=== PATIENT | female | born 1970 | race Caucasian/White ===

== ENCOUNTER → 2019-02-14 08:15 | Outpatient (CLI) | payer OTHER, SELFPAY ==
--- NOTE | 2019-02-14 08:19 | MM_ITS ---
PROCEDURE: MM DIG SCREENING MAMM BI W/CAD CLINICAL INDICATION: SCREENING There is no personal or family history of breast cancer COMPARISON: DIGMAMMS MAMMOGRAM SCREEN-SPORTS [employer] N/C from 01/25/2006 DIGMAMMS MAMMOGRAM SCREEN-SPORTS [employer] N/C from 09/19/2006 [facility] DIG MAMM-SCREEN KWADWO from 12/21/2015 TECHNIQUE: Standard CC and MLO images were obtained. R2 CAD reviewed. FINDINGS: There is a diffusely dense and heterogenic parenchymal pattern lessening the sensitivity of mammography. There is stable slightly asymmetrically increased fibroglandular elements in the central portion left breast. There is a possible developing asymmetric density upper outer quadrant left breast versus summation shadow. Recommend the patient return for spot compression views and ultrasound may be necessary as well. There are no suspicious microcalcifications. IMPRESSION: Diffusely dense parenchymal pattern with possible asymmetric lesion left breast BI-RAD Category: 0 Need Additional Imaging Evaluation FOLLOW-UP: IMM Immediate Follow-up Recommended (A letter has been sent to the patient regarding results of the study.) Dictated by: Dr. Vaibhav Abernathy MD 02/19/2019 10:[address] Vaibhav Abernathy MD in [place] 02/19/2019 10:23
== END ==
PROVIDERS: PCP Family Medicine; Visit Provider Family Medicine
DX: Z12.31 Encounter for screening mammogram for malignant neoplasm of breast (principal)
CPT/HCPCS: 77067

== ENCOUNTER → 2019-03-07 14:13 | Outpatient (CLI) | payer OTHER, SELFPAY ==
--- NOTE | 2019-03-07 14:18 | MM_ITS ---
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 FINDINGS: There is dense fibroglandular tissue which decreases sensitivity of mammography. Multiple benign-appearing nodular opacities are present. There is some minimal parenchymal opacity noted in the area of concern possibly related overlapping fibroglandular tissue. Would suggest correlation with ultrasound for confirmation in this patient with dense breast tissue. Scattered benign-appearing calcifications and scattered benign-appearing nodules are noted. IMPRESSION: Since there is some persistent parenchymal opacity in the upper outer left breast in the area of concern on the screening exam possibly related to overlapping tissue. Recommend ultrasound for further evaluation BI-RAD Category: 0 Need Additional Imaging Evaluation FOLLOW-UP: IMM Immediate Follow-up Recommended (A letter has been sent to the patient regarding results of the study.) Dictated by: Justus Rosenthal MD 03/11/2019 13:05 Electronically signed by Justus Rosenthal MD in [place] 03/11/2019 13:05
== END ==
PROVIDERS: PCP Family Medicine; Visit Provider Family Medicine
DX: R92.8 Other abnormal and inconclusive findings on diagnostic imaging of breast (principal)
CPT/HCPCS: 77065

== ENCOUNTER → 2019-03-28 13:03 | Outpatient (CLI) | payer OTHER, SELFPAY ==
--- NOTE | 2019-03-28 13:12 | US_ITS ---
PROCEDURE: US BREAST LT COMPLETE CLINICAL INDICATION: ABN MAMM Or follow-up abnormal mammogram COMPARISON: MM DIG SCREENING MAMM BI W/CAD from 02/14/2019 MM DIG MAMM DX UNILAT LT CAD from 03/07/2019 FINDINGS: At 3 o'clock there is a 5 x 3 mm cyst. At 5 o'clock there is a 10 x 5 mm cyst. There is ductal dilatation in the retro areolar region with heterogeneous echogenic fibroglandular tissue. At 10 o'clock near the nipple there is a 8 mm hypoechoic nodule. This has some low level echoes but could be related to artifact. At 3 o'clock there is a 15 mm cyst. Small nodes are present in the axilla. IMPRESSION: There are multiple left breast cysts as well as ductal ectasia in the retroareolar region. There is a hypoechoic nodule at the 10 o'clock region deep in the breast along the chest wall which is 10 x 8 mm. This could represent a cyst as well however there are some low level echoes which could be related to the technique with reverberation. This nodules fairly well-circumscribed probably benign. Suggest 6 month sonographic follow-up to confirm stability. BI-RADS category 3 probably benign Recommend six-month mammographic and sonographic follow-up of the left breast. Dictated by: Justus Rosenthal MD 04/09/2019 07:59 Electronically signed by Justus Rosenthal MD in [place] 04/09/2019 07:59
== END ==
PROVIDERS: PCP Family Medicine; Visit Provider Family Medicine
DX: R92.8 Other abnormal and inconclusive findings on diagnostic imaging of breast (principal)
CPT/HCPCS: 76641

== ENCOUNTER → 2019-09-11 14:22 | Outpatient (CLI) | payer OTHER, SELFPAY ==
--- NOTE | 2019-09-11 14:27 | US_ITS ---
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 R2 CAD reviewed. Left breast ultrasound the FINDINGS: There is dense fibroglandular tissue. There are multiple benign-appearing nodules of the left breast as well as scattered benign-appearing calcifications. No malignant appearing mass or malignant-appearing microcalcification is evident. Left breast ultrasound: Multiple cysts are present as before including a 7 mm cyst at 3 o'clock, a 16 mm cyst 3 o'clock, and 11 mm cyst 4 o'clock and a 10 mm cyst 10 o'clock. There is ductal ectasia noted. In the retroareolar region there is a well-circumscribed isoechoic to slightly hypoechoic nodule at 10 mm not readily apparent on the previous ultrasound and may represent a debris-filled cyst. Three month sonographic follow-up is suggested to confirm stability or resolution. IMPRESSION: Probably benign findings. Multiple left breast cysts. Possible complicated cyst in the retroareolar region not readily apparent previously. Recommend 3 month sonographic follow-up BI-RAD Category: 3 Probably Benign Finding Short Term Follow-up FOLLOW-UP: 3M 3 Month Follow-up (A letter has been sent to the patient regarding results of the study.) The Dictated by: Justus Rosenthal MD 09/16/2019 11:11 Electronically signed by Justus Rosenthal MD in [place] 09/16/2019 11:11
== END ==
PROVIDERS: PCP Family Medicine; Visit Provider Family Medicine
DX: R92.8 Other abnormal and inconclusive findings on diagnostic imaging of breast (principal)
CPT/HCPCS: 76641; 77061; 77065; G0279

== ENCOUNTER → 2020-04-02 13:57 | Outpatient (CLI) | payer OTHER, SELFPAY ==
--- NOTE | 2020-04-02 14:08 | MM_ITS ---
PROCEDURE: MM DIG MAMM BI DX W/CAD Digital Breast Tomosynthesis Included CLINICAL INDICATION: ABN MAMM There is no personal or family history of breast cancer. This is a six-month follow-up mammogram left breast screening mammogram right breast. COMPARISON: MG MM DIG SCREENING MAMM BI W/CAD from 02/14/2019 MG MM DIG MAMM DX UNILAT LT CAD from 03/07/2019 MG MM DIG MAMM DX UNILAT LT CAD from 09/11/2019 US US BREAST LT COMPLETE from 04/02/2020 TECHNIQUE: Standard CC and MLO images and 3D Tomosynthesis was obtained. R2 CAD reviewed. FINDINGS: Use heterogenic fibroglandular densities are seen throughout both breasts. There is a well-defined nodular density upper inner quadrant left breast the smooth borders. Ultrasound performed the same date showed a solid lesion with homogeneous internal echogenicity suggesting a fibroadenoma at this location compatible in size. There are additional benign-appearing cystic lesions seen in left breast on the ultrasound study. This for lesion is stable and unchanged in appearance from mammograms dating back to 02/14/2019. The other possible nodular lesion at outer quadrant left breast seen on mammogram of 02/14/2019 is not seen on the [place] images. This may have been a cyst which decompressed. There are few scattered microcalcifications in the subareolar regions of both breasts which appear to be typical of sclerosing adenosis. There appear to be some mildly prominent ducts in the subareolar regions of both breasts. There is no suspicious lesion and no suspicious microcalcifications. IMPRESSION: Dense and heterogenic parenchymal pattern with no suspicious lesions seen BI-RAD Category: 2 Benign Finding(s) FOLLOW-UP: 1YR 1 Year Follow-up (A letter has been sent to the patient regarding results of the study.) Dictated by: Dr. Vaibhav Abernathy MD 04/07/2020 09:03 Dr. Vaibhav Abernathy MD in [place] 04/07/2020 09:03
--- NOTE | 2020-04-02 14:09 | US_ITS ---
PROCEDURE: US BREAST LT COMPLETE CLINICAL INDICATION: ABN MAMM COMPARISON: US US BREAST LT COMPLETE from 09/11/2019 FINDINGS: There are dilated ducts in the subareolar region as noted previously. There is a benign-appearing cystic lesion 2 o'clock position near the nipple measuring 0.8 x 0.8 by 0.8 cm showing mild acoustic enhancement beneath. There are couple of smaller benign-appearing cystic lesions at the 3 and 5 o'clock outer breast. There is an oval hypoechoic solid lesion at the 11 o'clock position mid breast measuring 1.0 x 0.8 by 0.8 cm and this corresponds in size and location to the well-defined nodular density seen on mammogram and best seen on [place] images and this likely is a fibroadenoma. There are couple normal appearing nodes in the axilla. IMPRESSION: Findings of ductal hyperplasia as noted previously with several small benign-appearing cyst and what appears to be a small fibroadenoma which appears to correspond in size and location to the density on the mammogram and I believe no additional ultrasound follow-up is indicated is at this time. Dictated by: Dr. Vaibhav Abernathy MD 04/07/2020 09:08 Dr. Vaibhav Abernathy MD in [place] 04/07/2020 09:08
== END ==
PROVIDERS: PCP Family Medicine; Visit Provider Family Medicine
DX: R92.8 Other abnormal and inconclusive findings on diagnostic imaging of breast (principal)
CPT/HCPCS: 76641; 77062; 77066; G0279

== ENCOUNTER → 2020-07-29 10:06 | Outpatient (CLI) | payer BC, SELFPAY | PROVIDERS: PCP Family Medicine; Visit Provider Family Medicine | DX: G47.33 Obstructive sleep apnea (adult) (pediatric) (principal); R40.0 Somnolence; R51.9 Headache, unspecified; R06.83 Snoring | CPT/HCPCS: 95806 ==

== ENCOUNTER → 2021-04-15 07:57 | Outpatient (CLI) | payer BC, SELFPAY ==
--- NOTE | 2021-04-15 08:00 | MM_ITS ---
PROCEDURE INFORMATION: Exam: MG Bilateral Screening 3D Mammography Exam date and time: 04/15/2021 8:00 AM Age: 50 years old Clinical indication: Screening exam; No personal or family HX of malignancy TECHNIQUE: Imaging protocol: Bilateral screening tomosynthesis and 2D mammography including computer-aided detection (CAD) when performed. COMPARISON: 1. MG MM DIG MAMM BI DX W/CAD 04/02/2020 2:25 PM 2. MG MM DIG MAMM DX UNILAT LT CAD 09/11/2019 2:39 PM FINDINGS: MAMMOGRAPHY: Breast composition: The breast tissue is heterogeneously dense, which may obscure small masses. Mass: None. Architectural distortion: None. Calcifications: No suspicious calcifications. Asymmetric density: None. Skin thickening: None. Axillary adenopathy: None. IMPRESSION: No mammographic evidence of malignancy. Annual screening is recommended unless otherwise clinically indicated. ASSESSMENT: BI-RADS Category 1: Negative
== END ==
PROVIDERS: PCP Family Medicine; Visit Provider Family Medicine
DX: Z12.31 Encounter for screening mammogram for malignant neoplasm of breast (principal)
CPT/HCPCS: 77063; 77067

== ENCOUNTER → 2022-04-21 07:47 | Outpatient (CLI) | payer BC, SELFPAY ==
--- NOTE | 2022-04-21 07:52 | MM_ITS ---
PROCEDURE INFORMATION: Exam: MG Bilateral Screening 3D Mammography Exam date and time: 04/21/2022 7:56 AM Age: 51 years old Clinical indication: Screening examination TECHNIQUE: Imaging protocol: Bilateral Screening tomosynthesis and 2D mammography including computer-aided detection (CAD) when performed. COMPARISON: 1. MG MM DIG SCREENING MAMM BI W/CAD 04/15/2021 8:01 AM 2. MG MM DIG MAMM BI DX W/CAD 04/02/2020 2:25 PM FINDINGS: MAMMOGRAPHY: Breast composition: The breasts are heterogeneously dense, which may obscure small masses. Mass: None. Architectural distortion: None. Calcifications: No suspicious calcifications. Asymmetric density: None. Skin thickening: None. Axillary adenopathy: None. IMPRESSION: No mammographic evidence of malignancy. Annual screening is recommended unless otherwise clinically indicated. ASSESSMENT: BI-RADS Category 1: Negative
== END ==
PROVIDERS: PCP Nurse Practitioner Family; Visit Provider Nurse Practitioner Family
DX: Z12.31 Encounter for screening mammogram for malignant neoplasm of breast (principal)
CPT/HCPCS: 77063; 77067

== ENCOUNTER 2023-03-11 17:38 | Emergency (ER) | payer BC, SELFPAY ==
--- NOTE | 2023-03-11 17:48 | EXP.UTC ---
Discharge Plan Prescriptions Prescriptions: No Action eszopiclone [Lunesta] 3 MG Tablet 3 mg PO DAILY fexofenadine [Kavita Allergy] 60 MG Tablet 60 mg PO DAILY PRN (Reason: allergy) metoprolol succinate 50 MG Tab.Er.24h 50 mg PO DAILY Referrals Follow up/Referrals: Darryl Mac MD [Primary Care Provider] - See instructions Activity Restrictions/Add. Instructions Additional Instructions/Restrictions: EKG showed LBBB and epigastric pain did not resolve with GI cocktail - sent to ER Clinical Impressions Clinical Impression: Epigastric abdominal pain Discharge ED Provider: Jordan Carson [facility] [place] HPI General Stated complaint: heartburn Time Seen by Provider: 03/11/23 18:30 History of Present Illness Provider Complaint: Patient states he has had heartburn for 4 days. Initially resolved with Prilosec, Tums. It remained gone and Monday, but woke up this am with epigastric burning. She has worked all day but no relief with Prilosec, Tums. Blood pressure a bit elevated today but no history of HTN. No history of diabetes or CAD. She denies shortness of breath. States she is always sweating. Onset (ago): day(s) Location: chest Radiation: non-radiation Relieving factors: none Exacerbating factors: none Treatments prior to arrival: other (Prilosec, Tums) Related Data Home Medications Medication Instructions Recorded Confirmed eszopiclone 3 mg tablet (Lunesta) 3 mg PO DAILY \ 08/21/18 08/24/18 fexofenadine 60 mg tablet (Kavita 60 mg PO DAILY PRN allergy 08/21/18 08/24/18 Allergy) metoprolol succinate 50 mg 50 mg PO DAILY bp 08/21/18 08/24/18 tablet,extended release 24 hr Allergies Allergy/AdvReac Type Severity Reaction Status Date / Time adhesive Allergy Verified 08/24/18 07:15 cefdinir [From Omnicef] Allergy Verified 08/24/18 07:15 latex Allergy Verified 08/24/18 07:15 Penicillins Allergy Verified 08/24/18 07:15 [facility] Disclaimer: The information contained in this section may have been updated after the patient was seen, as this information can be updated by other users. Social History Smoking Status: Never smoker alcohol intake: never current occupational status: employed Travel in the last 8 weeks: None caffeine: No ROS Obtained: Yes All systems reviewed & no additional complaints except as documented Cardiovascular Cardiovascular: Reports system reviewed and no additional complaints, except as documented and Reports as per HPI Gastrointestinal Gastrointestingal: Reports system reviewed and no additional complaints, except as documented and heartburn Physical Exam General General appearance: alert and in no apparent distress Head Head exam: atraumatic, normocephalic and normal inspection Eye Eye exam: Present normal appearance, PERRL and EOMI ENT ENT exam: Present normal exam, normal oropharynx, mucous membranes moist, TM's normal bilaterally and normal external ear exam Neck Neck exam: Present normal inspection, full ROM and trachea midline; Absent meningismus or lymphadenopathy Chest Chest inspection: Present normal inspection and symmetric chest wall rise; Absent tenderness Respiratory Respiratory exam: Present normal lung sounds bilaterally; Absent respiratory distress Cardiovascular Cardiovascular exam: Present regular rate and normal rhythm; Absent JVD Abdominal Exam Abdominal exam: Present soft, tenderness (epigastric) and normal bowel sounds; Absent distention or guarding Extremities Exam Extremities exam: Present normal inspection, full ROM and normal capillary refill; Absent calf tenderness Back Exam Back exam: Present normal inspection; Absent tenderness Neurological Exam Neurological exam: Present alert and oriented X3 Psychiatric Psychiatric exam: Present normal affect and normal mood Skin Skin exam: Present warm, dry, intact and normal color Lymphatic Lymphatic Findings: no adenopathy Medical Decision Making Obi Liu
[2023-03-11 17:55] VITALS: BP 148/90; PULSE 106; RESP 20; TEMP 36.8; O2SAT 98; BMI 44.4
--- NOTE | 2023-03-11 18:31 | ECG_ITS ---
APPROVED REPORT Exam: Resting ECG HR:100 bpm ECG Measurements Heart Rate 100 AXES LA 171 P 42 QRSd 146 QRS -31 QT 369 T 94 QTc 426 Conclusion SINUS TACHYCARDIA LEFT AXIS DEVIATION [QRS AXIS < -30] LEFT BUNDLE BRANCH BLOCK [120+ ms QRS DURATION, 80+ ms Q/S IN V1/V2, 85+ ms R IN I/aVL/V5/V6] ABNORMAL ECG UNCONFIRMED REPORT Electronically signed by : Eyal Vergara MD 03/12/2023 07:33:45
--- NOTE | 2023-03-11 18:42 | PC.NURSE ---
PATIENT SENT TO ER PER Julia LARA FOR FURTHER EVALUATION. PATIENT AMBULATED TO ER WITH STAFF ASSIST AT THIS TIME
[2023-03-11 18:45] VITALS: BP 143/85; PULSE 104; O2SAT 97
[2023-03-11 18:48] VITALS: BP 143/85; PULSE 103; RESP 18; TEMP 37; O2SAT 97; BMI 44.4
--- NOTE | 2023-03-11 18:55 | PC.NURSE ---
Dr. Carson at [facility] for pt eval
[2023-03-11 19:00] VITALS: BP 124/76; PULSE 103; RESP 16; O2SAT 97
--- NOTE | 2023-03-11 19:01 | XR_ITS ---
PROCEDURE INFORMATION: Exam: XR Chest Exam date and time: 03/11/2023 7:24 PM Age: 52 years old Clinical indication: Dyspnea TECHNIQUE: Imaging protocol: Radiologic exam of the chest. Views: 1 view. Total images: 1 COMPARISON: No relevant prior studies available. FINDINGS: Tubes, catheters and devices: EKG leads are present. Lungs: Breast/body wall attenuation artifact at both lung bases. No consolidation. No pulmonary vascular congestion or edema. Pleural spaces: Unremarkable. No pleural effusion. No pneumothorax. Heart/Mediastinum: Unremarkable. No cardiomegaly. No mediastinal widening or hilar enlargement. Bones/joints: Mild osteopenia. Mild thoracic dextrocurvature. Multilevel mild degenerative changes of the thoracic spine partially visualized. IMPRESSION: No radiographically acute cardiopulmonary process.
--- NOTE | 2023-03-11 19:01 | HMH.EDGENADL ---
Discharge Plan Disposition Patient Disposition: Home, Self-Care Prescriptions Prescriptions: No Action eszopiclone [Lunesta] 3 MG Tablet 3 mg PO DAILY fexofenadine [Kavita Allergy] 60 MG Tablet 60 mg PO DAILY PRN (Reason: allergy) metoprolol succinate 50 MG Tab.Er.24h 50 mg PO DAILY Referrals Follow up/Referrals: Darryl Mac MD [Primary Care Provider] - See instructions Logan Topete MD [Staff Physician] - See instructions Activity Restrictions/Add. Instructions Additional Instructions/Restrictions: EKG showed LBBB and epigastric pain did not resolve with GI cocktail - sent to ER No evidence of any acute cardiopulmonary emergency please follow with Dr. Topete at your earliest convenience. Clinical Impressions Clinical Impression: Chest pain, atypical, LBBB (left bundle branch block) Discharge ED Provider: Jordan Carson General Adult HPI General Chief complaint: PAIN Stated complaint: heartburn Time Seen by Provider: 03/11/23 18:30 Mode of Arrival: Ambulatory Source of Information: Patient Limitations: No Limitations Description of Symptoms (Recalled from ER Triage Doc. by RN): Presents to ED from [facility] with c/o epigastric pain that started Monday that subsided with Prilosec. Patient report she was fine the next few days and then this morning she had epigastric pain took Prilosec and had no relief. Denies cardiac hx of SOA. History of Present Illness HPI narrative: Patient is a 52-year-old female with no significant past medical history other than obesity and obstructive sleep apnea presenting today with epigastric and retrosternal chest pain. She states this began on Monday lasted about 4 to 5 hours was consistent with what she thought was reflux in the past she took Prilosec and stated she had improvement in her symptoms. However early this morning she began having the same symptoms and it has been unrelenting all day long. She went to the urgent treatment clinic where she was given a GI cocktail without any significant improvement had an EKG which showed a left bundle branch block and was sent to the emergency department. Patient states that she is still having the same chest discomfort that she had earlier this morning its been ongoing and unchanged since early this morning. It is nonexertional she has had a low bit of nausea associated with it. No abdominal discomfort. She does states she had a little bit of tenderness in the sternal area right in the middle between her breasts. She has not had any exertional symptoms has been to work the last several days. No radiation. No other respiratory symptoms associated with this. She states she has never had an EKG in the pas and has never been told that she has any underlying cardiac pathology. She is never had a heart catheter or stress test before as well. Onset (ago): day(s) Location: chest Relieving factors: none Exacerbating factors: none Treatments prior to arrival: other (Prilosec, Tums) Related Data Home Medications Medication Instructions Recorded Confirmed eszopiclone 3 mg tablet (Lunesta) 3 mg PO DAILY \ 08/21/18 08/24/18 fexofenadine 60 mg tablet (Kavita 60 mg PO DAILY PRN allergy 08/21/18 08/24/18 Allergy) metoprolol succinate 50 mg 50 mg PO DAILY bp 08/21/18 08/24/18 tablet,extended release 24 hr Allergies Allergy/AdvReac Type Severity Reaction Status Date / Time adhesive Allergy Verified 08/24/18 07:15 cefdinir [From Omnicef] Allergy Verified 08/24/18 07:15 latex Allergy Verified 08/24/18 07:15 Penicillins Allergy Verified 08/24/18 07:15 PFSH PFSH Disclaimer: The information contained in this section may have been updated after the patient was seen, as this information can be updated by other users. Social History (Updated 03/11/23 @ 18:48 by JANE Cuadra) Smoking Status: Never smoker alcohol intake: never current occupational status: employed Travel in the last 8 week
--- NOTE | 2023-03-11 19:06 | PC.NURSE ---
RAD at for CXR
[2023-03-11 19:30] VITALS: BP 111/81; PULSE 102; RESP 18; O2SAT 98
[2023-03-11 20:05] LABS: Basophils # 0.1 K/mm3 (0-0.2); Basophils % 0.4 % (0.1-2.0); Eosinophils # 0.2 K/mm3 (0.0-0.4); Eosinophils % 1.5 % (0.1-12.0); Hematocrit 44.3 % (37.0-47.0); Lymphocytes # 2.7 K/mm3 (0.7-4.5); Lymphocytes % 24.9 % (10-50); Mean Corpuscular HGB Conc 31.5 g/dL (31.8-35.4); Mean Corpuscular Hemoglobin 30.4 pg (27.0-31.2); Mean Corpuscular Volume 96.4 fl (81-99); Mean Platelet Volume 8.8 fl (7.4-10.4); Monocytes # 0.5 K/mm3 (0.1-1.0); Monocytes % 4.5 % (1.7-9.3); Neutrophils # 7.4 K/mm3 (1.8-7.8); Neutrophils % 68.6 % (37.0-80.0); Platelet Count 198 K/mm3 (142-424); White Blood Count 10.8 K/mm3 (4.8-10.8)
[2023-03-11 20:13] LABS: Alanine Aminotransferase 24 U/L (12-78); Albumin Level 4.8 g/dl (3.5-5.0); Albumin/Globulin Ratio 1.5 (1.1-1.8); Alkaline Phosphatase 105 U/L (38-126); Anion Gap 16.8 mEq/L (5-15); Aspartate Amino Transferase 37 U/L (14-36); Bilirubin,Total 1.4 mg/dl (0.2-1.3); Blood Urea Nitrogen 14 mg/dl (7-17); Calcium 9.1 mg/dl (8.4-10.2); Carbon Dioxide 23 mmol/L (22.0-30.0); Chloride 104 mmol/L (98-107); Creatinine Clearance Estimated 75 mL/min (50-200); Estimated Glomerular Filt Rate 75 ml/min (>60); GFR (African American) 90 ML/MIN (>60); Globulin 3.1 g/dL (1.3-3.2); Glucose 108 mg/dl (74-100); Lipase 30 U/L (23-300); Potassium 4.8 mmoL/L (3.5-5.1); Sodium 139 mmol/L (136-145); Total Protein,Serum 7.9 g/dl (6.3-8.2)
[2023-03-11 20:18] LABS: D-Dimer 0.84 ug/mL (0.0-0.5)
[2023-03-11 20:29] LABS: Troponin I < 0.01 ng/ml (0.00-0.034)
[2023-03-11 20:34] VITALS: BP 131/87; PULSE 104; RESP 18; TEMP 37; O2SAT 96
== END 2023-03-11 20:39 | disposition home or self-care (01) ==
LOC: UTC 18:20 → ER 18:43
PROVIDERS: Emergency Provider Student in an Organized Health Care Education/Training Program; PCP Family Medicine
DX: R10.13 Epigastric pain (principal); R94.31 Abnormal electrocardiogram [ECG] [EKG]; K75.81 Nonalcoholic steatohepatitis (NASH); E66.9 Obesity, unspecified; G47.33 Obstructive sleep apnea (adult) (pediatric)
CPT/HCPCS: 71045; 80053; 83690; 84484; 85025; 85378; 93005; 99284

== ENCOUNTER → 2023-03-30 07:54 | Outpatient (CLI) | payer BC, SELFPAY ==
--- NOTE | 2023-03-30 08:00 | US_ITS ---
FINAL REPORT CLINICAL HISTORY: PEPTIC ULCER DISEASE,REFLUX,NAUSEA COMPARISON: None FINDINGS: Sonographic images of the right upper quadrant were obtained. The pancreas is partially obscured.The liver has an unremarkable appearance. There are multiple gallstones present in the gallbladder. There is no evidence of biliary ductal dilatation.The common duct measures 4.5 mm. Limited images of the right kidney are unremarkable. IMPRESSION: Multiple gallstones present in the gallbladder. Reviewed, Interpreted and Dictated by Casey Garay III, MD Transcribed by Yamileth Watts Authenticated and [facility]
== END ==
LOC: RAD 07:55
PROVIDERS: PCP Family Medicine; Visit Provider Nurse Practitioner
DX: K27.9 Peptic ulcer, site unspecified, unspecified as acute or chronic, without hemorrhage or perforation (principal); K21.00 Gastro-esophageal reflux disease with esophagitis, without bleeding; R11.0 Nausea
CPT/HCPCS: 76705

== ENCOUNTER 2023-04-06 07:42 | Outpatient (CLI) | payer BC, SELFPAY ==
[2023-04-06] VITALS (9 sets, daily range): BP systolic 90–137; BP diastolic 50–72; PULSE 57–67; RESP 16–18; TEMP 36.3; O2SAT 96–99
--- NOTE | 2023-04-06 07:43 | CT_ITS ---
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 A noncontrast coronary calcium scan was performed. A CT attenuation threshold of 130 Hounsfield units (HU) was used for the detection of calcium in contiguous voxels of 1 sq mm in area to be counted as individual lesions. Bolus tracking in the ascending aorta with a threshold of 180 HU was performed. Immediately afterwards, ECG synchronized cardiac CT was then performed from the cardiac base to apex using retrospective gating with ECG tube current modulation. A total of 85 mL of Isovue 370 mg/mL contrast medium was administered at 5 mL/sec followed by a saline flush using a biphasic injection protocol. A tube voltage of 120 KVp was used. The patient received the following medications prior to the cardiac CT. 25 mg of oral metoprolol 10 mg of intravenous metoprolol 0.8 mg of sublingual nitroglycerin The average heart rate at the time of acquisition was 52 bpm and regular. Image Reconstruction Transaxial images were reconstructed at 0.67 mm slide thickness. Data was reviewed interactively on an advanced workstation capable of 2 and 3-dimensional displays in all conventional reconstruction formats, including multiplanar reformations, maximum intensity projections, curved multiplanar reformations, and volume rendered reconstructions. When applicable, selected routine images describing the relevant coronary anatomy and pathology were saved and sent to PACS. Complications None Technical Quality Overall image quality was suboptimal. Coronary artery opacification was suboptimal. Total DLP (Dose-Length Product) is 1521.4 mGy-cm. The reported value represents the total of one or more individual components during the CT acquisition of this date and at this time, and as such, the same value may appear in more than one CT report depending on the interpreting/reporting physicians. COMPARISON None FINDINGS CT Coronary Calcium Scoring LMA (Left Main Artery) = 0 LAD (Left Anterior Descending) = 0 LCX (Left Coronary Circumflex) = 0 RCA (Right Coronary Artery) = 0 Total Calcium Score = 0 using the AJ-130 method. The interpretation of the calcium heart score is based on the following continuum*: 0 = no calcified plaque detected (risk of coronary artery disease is very low ??? less than 5%) 1-10 = calcium detected in extremely minimal levels (risk of coronary diseases is still low ??? less than 10%) 11-100 = mild levels of plaque detected with certainty (mild or minimal narrowing of heart arteries is likely) 101-400 = definite,at least moderate levels of plaque detected (relatively high risk of a heart attack within 3-5 years) >401-999 = extensive levels of plaque detected (high risk of heart attack, high levels of vascular disease are present, high likelihood of at least one significant coronary narrowing) *The calcium heart score quantifies the burden of coronary calcification/plaque in the coronary arteries. The calcium heart score is not able to evaluate the presence or burden of non-calcified (i.e. soft) plaque. There is no identifiable calcification in the aortic valve, mitral annulus or mitral valve, pericardium, or myocardium. Coronary CT Angiography Coronaries have normal origin and proximal course. The coronary arterial system is right dominant. Note: Stenosis is reported as maximum percentage diameter stenosis. Quantitative Stenosis Grading: Left Main (LM): The left main originates normally from the left sinus of Valsalva. The LM bifurcates into the left anterior descending artery and left circumflex artery. The LM is patent with no evidence of atherosclerosis.
--- NOTE | 2023-04-06 07:57 | CA_ITS ---
APPROVED REPORT EXAM: Comprehensive 2D, Doppler, and color-flow Echocardiogram Associate Director Finance: Briana Nieto, RCS, RVS Ht: 5 ft 5 in Wt: 265lbs BSA: 2.23 BP: 126/81 mmHg Indications: Atypical CP, Abn EKG, GB dysfunction, Obesity Echo Enhancing Agent Comments: Limited windows secondary to body habitus 2D Dimensions IVSd 0.96 cm LVEF (Visual) 65.70 % PWd 1.08 cm LVDd 4.68 cm LVDs 2.99 cm Aortic Root 3.26 cm Left Atrium 2.95 cm LVOT 2.01 cm (M/F) 1.5-2.5 M-Mode Dimensions RVDd 2.52 cm (0.9-2.6) LA Diam 3.37 cm (1.9-4.0) LVDd 4.83 cm (3.5-5.7) Ao Diam 3.48 cm (2.0-3.7) LVDs 3.12 cm (3.5-5.7) IVSd 1.10 cm (0.6-1.1) PWd 0.96 cm (0.6-1.1) EF (Teich) 64.70% EPSs 0.83 cm FS 35.40% EDV (Teich) 109.10 mL TAPSE 2.10 (<1.7) ESV (Teich) 38.50 mL LV Diastology E Decel Time 223.00 (160-240 msec) E/A Ratio 1.03 MED E' 4.70 (< 7 cm/sec) MED A' 6.20 cm/s E'/MED E' Ratio 12.57 (>14) LAT E' 6.80 (<10 cm/sec) LAT A' 8.60 cm/s E/LAT E' Ratio 8.69 (>14) Aortic Valve LVOT Max 96.00 (70-110 cm/s) LVOT VTI 20.44 cm AoV Peak Christopher. 89.00 (50-130 cm/s) AO Peak GR. 3.20 mmHg AO Mean GR. 1.60 (<5 mmHg) AO VTI 18.44 (18-25 cm) NALLELY (VTI) 3.52 (2.5-4.5 cm2) Mitral Valve MV A Velocity 57.00 (40-130 cm/s) E/A Ratio 1.03 MV Decel. Time 223.00 (160-240 ms) MV Mean Gr. 1.20 (<2mmHg) Tricuspid Valve TR P. Velocity 162.00 cm/s Left Ventricle The left ventricle is normal size. The left ventricular systolic function is normal. The left ventricular ejection fraction is within the normal range. There is normal left ventricular wall thickness. There is normal LV segmental wall motion. The left ventricular diastolic function is normal. LVEF is 55%. Right Ventricle The right ventricle is mildly dilated. The right ventricular systolic function is normal. There is increased RV wall thickness. Atria The left atrium size is normal. The right atrium size is normal. There is no Doppler evidence of interatrial shunt. Aortic Valve The aortic valve opens well. There is no aortic valvular stenosis. No aortic regurgitation is present. Mitral Valve The mitral valve is normal in structure. No evidence of mitral valve stenosis. Trace mitral regurgitation. Tricuspid Valve The tricuspid valve leaflets are thin and pliable. Trace tricuspid regurgitation. There is insufficient TR jet to estimate RVSP. Pulmonic Valve The pulmonary valve is normal in structure. Trace pulmonic regurgitation. Great Vessels The aortic root is normal in size. The ascending aorta is normal in size. IVC is normal in size and collapses >50% with inspiration./ Pericardium There is no pericardial effusion. Other Information Study Quality: Fair Conclusion Normal biventricular systolic function. Mild RV dilation. No significant valvular stenosis or regurgitation. Electronically signed by : Geraldine Church MD 04/08/2023 21:09:20
== END 2023-04-06 11:25 | disposition home or self-care (01) ==
PROVIDERS: PCP Family Medicine; Visit Provider Internal Medicine
DX: R07.89 Other chest pain (principal); I44.7 Left bundle-branch block, unspecified; R00.0 Tachycardia, unspecified; R94.31 Abnormal electrocardiogram [ECG] [EKG]
CPT/HCPCS: 75571; 75574; 93306; Q9967

== ENCOUNTER 2023-06-29 07:47 | Outpatient (CLI) | payer BC, SELFPAY ==
--- NOTE | 2023-06-29 07:51 | MM_ITS ---
PROCEDURE INFORMATION: Exam: MG Bilateral Screening 3D Mammography Exam date and time: 06/29/2023 8:00 AM Age: 53 years old Clinical indication: Screening mammogram TECHNIQUE: Imaging protocol: Bilateral Screening tomosynthesis and 2D mammography including computer-aided detection (CAD) when performed. COMPARISON: 1. MG MM DIG SCREENING MAMM BI W/CAD 04/21/2022 7:56 AM 2. MG MM DIG SCREENING MAMM BI W/CAD 04/15/2021 8:01 AM 3. MG MM DIG MAMM BI DX W/CAD 04/02/2020 2:25 PM FINDINGS: MAMMOGRAPHY: Breast composition: The breast is heterogeneously dense, which may obscure small masses. Mass: Stable benign-appearing subcentimeter nodules are present in the left breast. No new or morphologically suspicious nodule has developed to suggest malignancy. Architectural distortion: No new or suspicious architectural distortion. Calcifications: No new or suspicious calcifications are present Asymmetric density: No new or suspicious asymmetric density is present Skin thickening: None. Axillary adenopathy: None. IMPRESSION: No mammographic evidence of malignancy. Recommend annual screening mammography unless otherwise clinically indicated. ASSESSMENT: BI-RADS category 2: Benign
== END 2023-06-29 23:59 ==
LOC: RAD 07:47
PROVIDERS: PCP Family Medicine; Visit Provider Nurse Practitioner
DX: Z12.31 Encounter for screening mammogram for malignant neoplasm of breast (principal)
CPT/HCPCS: 77063; 77067

== ENCOUNTER 2023-08-28 09:14 | Outpatient (CLI) | payer BC, SELFPAY ==
--- NOTE | 2023-08-28 09:42 | XR_ITS ---
FINAL REPORT CLINICAL HISTORY: OSTEOPENIA FINDINGS: Using L1-4, the bone mineral density of the spine is 1.074 g/cm2, corresponding to T-score of 0.2 with a Z-score of 1.3. This is within the normal range.. Using the right hip, the bone mineral density of the femoral neck is 0.950 g/cm2, corresponding to a T-score of 0.9 with a Z-score of 2.0. This is within the normal range.. Using the left hip: The bone mineral density of the femoral neck is 0.968 g/cm2, corresponding to a T-score of 0.2 with a Z-score of 0.9. This is within the normal range.. IMPRESSION: Normal bone mineral density of the lumbar spine and bilateral hips. NOTE: T-score: Standard deviation compared with peak bone mass of young adult mean. *Following the recommendations of the International Society of Bone densitometry, classification of hip BMD is based on the lower of two T-scores; total hip or femoral neck. Reviewed, Interpreted and Dictated by Mary Zamarripa MD Transcribed by Tete Cisse Authenticated and . [facility]
== END 2023-08-28 23:59 ==
LOC: RAD 09:15
PROVIDERS: PCP Nurse Practitioner; Visit Provider Nurse Practitioner
DX: M81.0 Age-related osteoporosis without current pathological fracture (principal)
CPT/HCPCS: 77080

== ENCOUNTER 2023-10-12 09:02 | Outpatient (CLI) | payer BC, SELFPAY ==
[2023-10-12 09:34] LABS: Basophils # 0.1 K/mm3 (0-0.2); Basophils % 0.8 % (0.1-2.0); Eosinophils # 0.2 K/mm3 (0.0-0.4); Eosinophils % 2.5 % (0.1-12.0); Hematocrit 40.6 % (37.0-47.0); Hemoglobin 13.1 g/dL (12.2-16.2); Lymphocytes # 2.4 K/mm3 (0.7-4.5); Lymphocytes % 29.4 % (10-50); Mean Corpuscular HGB Conc 32.3 g/dL (31.8-35.4); Mean Corpuscular Hemoglobin 32.2 pg (27.0-31.2); Mean Corpuscular Volume 99.6 fl (81-99); Monocytes # 0.4 K/mm3 (0.1-1.0); Monocytes % 4.9 % (1.7-9.3); Neutrophils % 62.4 % (37.0-80.0); Platelet Count 196 K/mm3 (142-424); Red Blood Count 4.08 M/mm3 (4.20-5.40); Red Cell Distribution Width 13.3 % (11.5-17.5)
[2023-10-12 10:10] LABS: Alanine Aminotransferase 22 U/L (12-78); Albumin Level 4.2 g/dl (3.5-5.0); Alkaline Phosphatase 108 U/L (38-126); Anion Gap 14.3 mEq/L (5-15); Aspartate Amino Transferase 26 U/L (14-36); Bilirubin,Direct 0.2 mg/dl (0.0-0.4); Bilirubin,Indirect 0.4 mg/dL (0.0-0.9); Bilirubin,Total 0.6 mg/dl (0.2-1.3); Bilirubin,Unconjugated 0.5 mg/dL (0.0-1.1); Blood Urea Nitrogen 18 mg/dl (7-17); Calcium 9.4 mg/dl (8.4-10.2); Carbon Dioxide 27 mmol/L (22.0-30.0); Chloride 104 mmol/L (98-107); Chol/HDL Ratio 2.5 (1-3.5); Cholesterol 179 mg/dl (140-200); Estimated Glomerular Filt Rate 74 ml/min (>60); GFR (African American) 90 ML/MIN (>60); Glucose 94 mg/dl (74-100); HDL Cholesterol 71 mg/dl (40-60); Magnesium 1.9 mg/dl (1.6-2.3); Potassium 4.3 mmoL/L (3.5-5.1); Sodium 141 mmol/L (136-145); Total Protein,Serum 6.8 g/dl (6.3-8.2); Triglycerides 88 mg/dl (30-150); VLDL Cholesterol 18 mg/dL (0-40)
[2023-10-12 10:21] LABS: Direct LDL Cholesterol 90.55 mg/dL (100-129)
[2023-10-12 10:26] LABS: Free T4 (Free Thyroxine) 1.07 ng/dl (0.78-2.19)
[2023-10-12 10:39] LABS: Thyroid Stimulating Hormone 0.79 uIU/mL (0.465-4.68)
== END 2023-10-12 23:59 | disposition home or self-care (01) ==
LOC: LAB 09:03
PROVIDERS: PCP Nurse Practitioner; Visit Provider Nurse Practitioner Family
DX: R00.1 Bradycardia, unspecified (principal); R94.31 Abnormal electrocardiogram [ECG] [EKG]; Z79.899 Other long term (current) drug therapy
CPT/HCPCS: 36415; 80048; 80061; 80076; 83735; 84439; 84443; 85025

== ENCOUNTER 2024-07-18 08:00 | Outpatient (CLI) | payer BC, SELFPAY ==
--- NOTE | 2024-07-18 08:03 | MM_ITS ---
PROCEDURE INFORMATION: Exam: MG Bilateral Screening 3D Mammography Exam date and time: 07/18/2024 8:21 AM Age: 54 years old Clinical indication: Screening examination TECHNIQUE: Imaging protocol: Bilateral Screening tomosynthesis and 2D mammography including computer-aided detection (CAD) when performed. COMPARISON: 1. MG MM DIG SCREENING MAMM BI W/CAD 06/29/2023 8:00 AM 2. MG MM DIG SCREENING MAMM BI W/CAD 04/21/2022 7:56 AM FINDINGS: MAMMOGRAPHY: Breast composition: The breasts are heterogeneously dense, which may obscure small masses. Mass: None. Architectural distortion: None. Calcifications: No suspicious calcifications. Asymmetric density: None. Skin thickening: None. Axillary adenopathy: None. IMPRESSION: No mammographic evidence of malignancy. Annual screening is recommended unless otherwise clinically indicated. ASSESSMENT: BI-RADS Category 1: Negative.
== END 2024-07-18 23:59 | disposition home or self-care (01) ==
LOC: RAD 08:01
PROVIDERS: PCP Nurse Practitioner; Visit Provider Nurse Practitioner
DX: Z12.31 Encounter for screening mammogram for malignant neoplasm of breast (principal)
CPT/HCPCS: 77063; 77067

== ENCOUNTER 2024-10-10 08:49 | Outpatient (CLI) | payer BC, SELFPAY ==
[2024-10-10 09:12] LABS: Basophils % 0.5 % (0.1-2.0); Eosinophils # 0.2 Kmm3 (0.0-0.4); Hemoglobin 12.9 g/dL (12.2-16.2); Immature Granulocytes # 0.01 10^3uL; Immature Granulocytes % 0.2 %; Lymphocytes # 2.2 K/mm3 (0.7-4.5); Mean Corpuscular HGB Conc 32.3 g/dL (31.8-35.4); Mean Corpuscular Hemoglobin 31.2 pg (27.0-31.2); Mean Corpuscular Volume 96.6 fl (81-99); Mean Platelet Volume 10.4 fl (7.4-10.4); Monocytes # 0.5 K/mm3 (0.1-1.0); Monocytes % 8.2 % (1.7-9.3); Neutrophils # 3.5 K/mm3 (1.8-7.8); Neutrophils % 54.1 % (37.0-80.0); Nucleated Red Blood Cells # 0 10^3/uL; Nucleated Red Blood Cells % 0 %; Platelet Count 196 K/mm3 (142-424); Red Blood Count 4.14 M/mm3 (4.20-5.40); Red Cell Distribution Width 12.4 % (11.5-17.5); Red Cell Distribution Width-SD 44.6 fL; White Blood Count 6.4 K/mm3 (4.8-10.8)
[2024-10-10 09:55] LABS: Alanine Aminotransferase 27 U/L (12-78); Albumin Level 4.4 g/dl (3.5-5.0); Alkaline Phosphatase 90 U/L (38-126); Anion Gap 8.5 mEq/L (5-15); Aspartate Amino Transferase 34 U/L (14-36); Bilirubin,Direct 0.2 mg/dl (0.0-0.4); Bilirubin,Indirect 0.4 mg/dL (0.0-0.9); Bilirubin,Total 0.6 mg/dl (0.2-1.3); Bilirubin,Unconjugated 0.4 mg/dL (0.0-1.1); Blood Urea Nitrogen 17 mg/dl (7-17); Calcium 9.7 mg/dl (8.4-10.2); Carbon Dioxide 30 mmol/L (22.0-30.0); Chloride 105 mmol/L (98-107); Chol/HDL Ratio 2.9 (1-3.5); Cholesterol 171 mg/dl (140-200); Estimated Glomerular Filt Rate 65 ml/min (>60); GFR (African American) 78 ML/MIN (>60); Glucose 87 mg/dl (74-100); HDL Cholesterol 58 mg/dl (40-60); Potassium 4.5 mmoL/L (3.5-5.1); Sodium 139 mmol/L (136-145); Total Protein,Serum 6.7 g/dl (6.3-8.2); Triglycerides 102 mg/dl (30-150); VLDL Cholesterol 20 mg/dL (0-40)
[2024-10-10 10:06] LABS: Direct LDL Cholesterol 81.51 mg/dL (100-129)
[2024-10-10 10:11] LABS: Free T4 (Free Thyroxine) 1.22 ng/dl (0.78-2.19)
== END 2024-10-10 23:59 | disposition home or self-care (01) ==
LOC: LAB 08:49
PROVIDERS: PCP Nurse Practitioner; Visit Provider Physician Assistant
DX: E78.2 Mixed hyperlipidemia (principal); R94.31 Abnormal electrocardiogram [ECG] [EKG]; R00.0 Tachycardia, unspecified; R07.89 Other chest pain
CPT/HCPCS: 36415; 80048; 80061; 80076; 83735; 84439; 84443; 85025